=== PATIENT | male | born 1980 | race Caucasian/White ===

== ENCOUNTER 2018-03-21 20:50 | Emergency (ER) | payer SELFPAY ==
[~2018-03-21] VITALS: Ht 182.9 cm; Wt 81.6 kg
[~2018-03-21 20:50] MED LIST: HYDR1TAB8 OP
--- OUTSIDE RECORDS SUMMARY | 2018-03-21 20:54 | XMS REPORT ---
Author Author Sherri Moore Organization [employer] Address Unknown Phone Unavailable Care Team Providers Care Process Manufacturing Engineer Name Role Phone Sherri Moore CP Unavailable Allergies No Known Allergies Problems No Known Problems Medications No Known Medications Procedures Procedure Coding System Code Date NO SHOW FEE CPT-4 NOSHO Apr 22, 2014 Results No Known Results Summary Purpose [employer] Submission
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
--- OUTSIDE RECORDS SUMMARY | 2018-03-21 20:54 | XMS REPORT | Referral Summary ---
Author Author [facility] Organization [facility] Address Unknown Phone Unavailable Care Team Providers Care Screening Technician Name Role Phone Bobby Samano PCP Encounter [facility] Date(s): 02/09/16 - 02/09/16 [facility] [address] [place] [address] Discharge Diagnosis: Osteochondroma Discharge Disposition: 01-Home or Self Care Attending Physician: Grupo Avalos MD Admitting Physician: Grupo Avalos MD Vital Signs Most recent to 1 oldest [Reference Range]: Temperature Oral 36.5 degC [35.8-37.3 degC] (02/09/16 8:42 AM) Peripheral Pulse 73 bpm Rate [60-100 bpm] (02/09/16 9:59 AM) Respiratory Rate 20 br/min [14-20 br/min] (02/09/16 9:59 AM) Blood Pressure 132/91 mmHg [90-140/60-90 mmHg] (02/09/16 9:59 AM) SpO2 98 % (02/09/16 9:59 AM) Problem List No Known Problems Allergies, Adverse Reactions, Alerts No Known Medication Allergies Medications Naprosyn 375 mg oral tablet 375 mg 1 tabs, Oral, BID, X 4 days, # 8 tabs, 0 Refill(s), Indication: elisabet mcmahon md Start Date: 02/09/16 Stop Date: 02/13/16 Status: Ordered Ultram 50 mg oral tablet 50 mg 1 tabs, Oral, q4hr, X 4 days, # 24 tabs, 0 Refill(s), Indication: elisabet mcmahon md Start Date: 02/09/16 Stop Date: 02/13/16 Status: Ordered Results No data available for this section Immunizations No data available for this section Procedures No data available for this section Social History Social History Type Response Smoking Status Unknown if ever smoked Assessment and Plan No data available for this section
--- OUTSIDE RECORDS SUMMARY | 2018-03-21 20:54 | XMS REPORT | Continuity of Care Document ---
Author Author [facility] Marry [facility] Address Unknown Phone Unavailable Support Name Relationship Address Phone NELDA NOBLES M.D. Caregiver [employer] [address] [place] [address] STEPHANIA ABBOTT Next Of Kin [address] NO ONE ELSE [birth year]14 [place] [address] HOME Insurance Providers Payer Name Policy Number Subscriber Name Relationship [facility] [id number] [place] L 01 Self / Same As Patient Chief Complaint and Reason for Visit Chief Complaint Ankle Injury Reason for Visit [id number] Problems Active Problems Medical Problem Onset Date Status Clavicle fracture Unknown Acute Clavicle fracture Unknown Acute Closed fracture of olecranon process of ulna Unknown Acute Closed left ankle fracture Unknown Acute 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 Unknown Acute Elbow pain 08/13/2013 Acute Fracture of left clavicle Unknown Acute Fracture of left clavicle 12/06/2013 Acute Right 5th metacarpal (Boxer's) fracture Unknown Acute Right ankle sprain Unknown Acute Right knee sprain Unknown Acute Medications Current Home Medications Medication Dose Units Route Directions Days/Qty Instructions Start Date Hydrocodone-Acetaminophen 1 Tab 1-2 Tab Oral Q4-6H as needed for . 18 for pain 03/07/15 Past Home Medications Medication Directions Ordered Status Acetaminophen/Hydrocodone Bitart 1 Ea Tab, 1 Ea Oral Every 4 Hours As Needed 05/18/11 Discontinued Oxycodone/Acetaminophen 1 Tab/1 Un Tab, 1-2 Ea Oral Three Times A Day as needed for Pain 07/21/13 Discontinued Oxycodone/Acetaminophen 1 Tab/1 Un Tab, 1-2 Ea Oral Three Times A Day as needed for Pain 08/02/13 Discontinued Social History Social History Problem Response Recorded Date/Time Hx Alcohol Use Y social 07/26/2013 10:22am Smoking Status Heavy Tobacco Smoker 03/07/2015 4:45pm Query Response Start Date Stop Date Smoking Status Heavy Tobacco Smoker Hospital Discharge Instructions No hospital discharge instructions. Plan of Care Discharge Date 03/07/15 5:53pm Disposition 01 HOME, SELF-CARE Condition at Discharge Stable Instructions/Education Provided Ankle Fracture (ED) Forms Provided Work Release Prescriptions See Medication Section Referrals GABBY PHELAN M.D. - PABLO SHERIFF MD - Functional Status No functional status results. Allergies, Adverse Reactions, Alerts No known allergies. Immunizations No immunization records. Vital Signs Acute Vital Signs Vital Response Date/Time Blood Pressure 132/95 mm Hg 03/07/2015 5:33pm Blood Pressure Mean 107 mm Hg 03/07/2015 5:33pm Temperature (Fahrenheit) 97.8 degrees F (96.0 - 99.9) 03/07/2015 4:42pm Temperature (Calculated Celsius) 36.09093 degrees C 03/07/2015 4:42pm Temperature Source Oral 03/07/2015 4:42pm Pulse Pulse Rate: ED 85 bpm 03/07/2015 5:33pm Respiratory Rate 16 breaths per minute (10 - 20) 11/12/2014 11:58am Height (Feet) 5 ft 03/07/2015 4:42pm Height (Inches) 11 in. 03/07/2015 4:42pm Weight (Pounds) 175 lbs 03/07/2015 4:42pm Height 5 ft 11 in Weight 175 lb Body Mass Index 24.4 kg/m^2 Ambulatory Vital Signs Vital Response Date/Time Height 5 ft 11.260 in 12/10/2013 10:39am Weight 169 lbs 12/10/2013 10:39am Temperature 96.4 degrees F 12/10/2013 10:39am Blood Pressure 127/82 mm Hg 12/10/2013 10:39am Pulse Rate 89 bpm 12/10/2013 10:39am Body Surface Area 1.97 m2 12/10/2013 10:39am Body Mass Index 23.4 kg/m2 12/10/2013 10:39am Pulse Oximetry Pulse Oximetry 12/10/2013 10:39am Results No known relevant diagnostic tests, laboratory data and/or discharge summary. Procedures No known history of procedures. Encounters Encounter Location Arrival/Admit Date Discharge/Depart Date Attending Provider Departed Emergency Room [facility]ry [facility] 03/07/15 4:35pm 5:53pm NELDA NOBLES M.D. Departed Emergency Room Marry Chris [facility] 11/12/14 9:56am 11:59am KRISSY KANG DO Recent Diagnosis
--- OUTSIDE RECORDS SUMMARY | 2018-03-21 20:55 | XMS REPORT | Continuity of Care Document ---
Author Author Marry Chris [facility] Marry Chris [facility] Address Unknown Phone Unavailable Support Name Relationship Address Phone TIN BOLANOS M.D. Caregiver [address], [place] [address] Unavailable STEPHANIA ABBOTT Next [place] [address] [place] [address] Insurance Providers Guarantor Maurice Whitten Address [address] [place] [phone] Payer Self Pay Insurance Subscriber's Name Maurice Whitten Relationship 01 Self / Same As Patient Effective Date 17 Advance Directives No advance directive information available. Chief Complaint and Reason for Visit Chief Complaint Dental Pain Reason for Visit Elevated blood pressure reading without diagnosis of hypertension Gingivitis due to dental plaque with local contributing factor Problems Medical Problem Onset Date Status Clavicle fracture Unknown Acute Clavicle fracture Unknown Acute Closed fracture of olecranon process of ulna Unknown Acute Closed left ankle fracture Unknown Acute 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 Unknown Acute Elbow pain 08/13/2013 Acute Elevated blood pressure reading without diagnosis of hypertension Unknown Acute Fracture of left clavicle Unknown Acute Fracture of left clavicle 12/06/2013 Acute Gingivitis due to dental plaque with local contributing factor Unknown Acute Left ankle sprain Unknown Acute Right 5th metacarpal (Boxer's) fracture Unknown Acute Right ankle sprain Unknown Acute Right knee sprain Unknown Acute Past Problems Medical Problem Onset Date Status Elevated blood pressure reading Unknown Acute Intermittent right upper quadrant abdominal pain Unknown Acute Rib fracture Unknown Acute Right elbow pain Unknown Acute Right rib fracture Unknown Acute Medications Current Home Medications Medication Dose Units Route Directions Days Qty Instructions Start Date Penicillin V Potassium 500 Mg Tab 500 Mg Oral Four Times Daily for Infection 10 Days 40 Tablet 11/06/17 Past Home Medications Medication Directions Ordered Status Acetaminophen/Hydrocodone Bitart ([place] 5/325) 1 Ea Tab, 1 Ea Oral Every 4 Hours As Needed 05/18/11 Discontinued Oxycodone/Acetaminophen (Percocet) 1 Tab/1 Un Tab, 1-2 Ea Oral Three Times A Day as needed for Pain 08/02/13 Discontinued Oxycodone/Acetaminophen (Percocet) 1 Tab/1 Un Tab, 1-2 Ea Oral Three Times A Day as needed for Pain 07/21/13 Discontinued Social History Social History Problem Response Recorded Date/Time Onset Date Status Hx Alcohol Use Y - social 07/26/2013 10:22am Not Applicable Not Applicable Smoking Status Heavy Tobacco Smoker 11/06/2017 7:17pm Not Applicable Not Applicable Smoking Status Start Date Stop Date Heavy Tobacco Smoker Hospital Discharge Instructions No hospital discharge instruction information available. Plan of Care Discharge Date 11/06/17 7:41pm Disposition 01 HOME, SELF-CARE Condition at Discharge Stable Instructions/Education Provided Gingivitis (ED) Prescriptions See Medication Section Referrals CANDACE HARRISON M.D. Address: [address] [place] [phone] Additional Instructions/Education Rest. Alternate ibuprofen with Tylenol as needed. Pen-Vee K 500 mg 1 tablet orally 4 times a day x10 days. Follow up with dentist. Call to schedule appointment. Patient was given a dental sheet. Stop smoking. Followup with primary care physician as needed. Followup with primary care physician in the next 2-4 weeks to have blood pressure rechecked and reevaluated. Functional Status No functional status information available. Allergies, Adverse Reactions, Alerts No known allergies. Immunizations No immunization information available. Vital Signs Acute Vital Signs Vital Response Date/Time Blood Pressure 141/81 mm Hg 11/06/2017 7:14pm Blood Pressure Mean 101 mm Hg 11/06/2017 7:14pm Temperature (Fahrenheit) 98.5 degrees F (96.0 - 99.9) 11/06/2017 7:14pm Temperature (Calculated Celsius) 36.03274 degrees C 11/06/2017 7:14pm Temperature Source Oral 11/06/2017 7:14pm Pulse Pulse Rate: ED 74 bpm 11/06/2017 7:14pm Respiratory Rate 16 breaths per minute (10 - 20) 11/06/2017 7:14pm Height (Feet) 6 ft 11/06/2017 7:14pm Height (Inches) 0 in. 11/06/2017 7:14pm Weight (Pounds) 182.0 lbs 11/06/2017 7:14pm Height 6 ft 0 in 11/06/2017 7:14pm Weight 182 lb 11/06/2017 7:14pm Body Mass Index 24.7 kg/m^2 11/06/2017 7:14pm Ambulatory Vital Signs Vital Response Date/Time Height 6 ft 03/11/2015 10:23am Weight 175 lbs 03/11/2015 10:23am Body Surface Area 2.01 m2 03/11/2015 10:23am Body Mass Index 23.7 kg/m2 03/11/2015 10:23am Pulse Oximetry Pulse Oximetry 03/11/2015 10:23am Results Laboratory Results Test Name Result Units Flags Reference Collection Date/Time Result Date/ Time Comments White Blood Count 7.4 K/uL 5.0-10.0 07/27/2017 1:42pm 07/27/2017 1: 53pm Red Blood Count 4.88 M/uL 4.60-5.40 07/27/2017 1:42pm 07/27/2017 1: 53pm Hemoglobin 15.6 g/dL 14.0-18.0 07/27/2017 1:42pm 07/27/2017 1:53pm Hematocrit 45.0 % 40.0-54.0 07/27/2017 1:42pm 07/27/2017 1:53pm Mean Corpuscular Volume 92.2 fL 80.0-94.0 07/27/2017 1:42pm 07/27/2017 1:53pm Mean Corpuscular Hemoglobin 32.0 pg 26.0-33.0 07/27/2017 1:42pm 2017 1:53pm Mean Corpuscular Hemoglobin Concent 34.7 g/dL 31.0-36.0 07/27/2017 1: 42pm 07/27/2017 1:53pm Red Cell Distribution Width 12.3 % 11.5-14.5 07/27/2017 1:42pm 2017 1:53pm RDW Standard Deviation 41.2 fL 35.1-43.9 07/27/2017 1:42pm 07/27/2017 1 :53pm Platelet Count 182 K/uL 130-400 07/27/2017 1:42pm 07/27/2017 1:53pm Mean Platelet Volume 10.7 fL 7.0-11.0 07/27/2017 1:42pm 07/27/2017 1: 53pm Neutrophils (%) (Auto) 67.9 % 42.0-75.0 07/27/2017 1:42pm 07/27/2017 1: 53pm Lymphocytes (%) (Auto) 22.7 % 16.0-44.0 07/27/2017 1:42pm 07/27/2017 1: 53pm Monocytes (%) (Auto) 5.4 % 2.0-9.0 07/27/2017 1:42pm 07/27/2017 1:53pm Eosinophils (%) (Auto) 3.4 % 0-7.0 07/27/2017 1:42pm 07/27/2017 1:53pm Basophils (%) (Auto) 0.5 % 0-1 07/27/2017 1:42pm 07/27/2017 1:53pm Immature Granulocyte % (Auto) 0.1 % 0-0.5 07/27/2017 1:42pm 07/27/2017 1:53pm Nucleated Red Blood Cells % 0.0 /100WBC 0-0 07/27/2017 1:42pm 2017 1:53pm Neutrophils # (Auto) 5.0 K/uL 1.9-8.0 07/27/2017 1:42pm 07/27/2017 1: 53pm Lymphocytes # (Auto) 1.7 K/uL 0.9-5.2 07/27/2017 1:42pm 07/27/2017 1: 53pm Monocytes # (Auto) 0.4 K/uL 0.16-1.0 07/27/2017 1:42pm 07/27/2017 1: 53pm Eosinophils # (Auto) 0.3 K/uL 0-0.8 07/27/2017 1:42pm 07/27/2017 1: 53pm Basophils # (Auto) 0.0 K/uL 0-0.2 07/27/2017 1:42pm 07/27/2017 1:53pm Immature Granulocyte # (Auto) 0.01 K/uL 0-0.40 07/27/2017 1:42pm 2017 1:53pm Nucleated Red Blood Cells # 0.00 K/uL 0.0-0.012 07/27/2017 1:42pm 07/27 1:53pm Random Glucose 97 mg/dL 65-115 07/27/2017 1:42pm 07/27/2017 2:06pm Blood Urea Nitrogen 13 mg/dL 8-25 07/27/2017 1:42pm 07/27/2017 2:06pm Creatinine 0.76 mg/dL L 0.9-1.6 07/27/2017 1:42pm 07/27/2017 2:06pm Glomerular Filtration Rate Calc 114.78 mL/min 07/27/2017 1:42pm 07/27 2:06pm MULTIPLY RESULT BY 1.210 IF THE PATIENT IS -BURKINAN Units are mL/min/1.73 m2 > 60 Normal kidney function 30-59 Moderately decreased kidney function 15-29 Severely decreased kidney function <15 End-stage kidney failure BUN/Creatinine Ratio 17.1 07/27/2017 1:42pm 07/27/2017 2:06pm Sodium Level 136 mEq/L 133-145 07/27/2017 1:42pm 07/27/2017 2:06pm Potassium Level 3.7 mEq/L 3.5-5.1 07/27/2017 1:42pm 07/27/2017 2:06pm Chloride Level 103 mEq/L 98-116 07/27/2017 1:42pm 07/27/2017 2:06pm Carbon Dioxide Level 25 mEq/L 22-34 07/27/2017 1:42pm 07/27/2017 2: 06pm Anion Gap 11.7 6-13 07/27/2017 1:42pm 07/27/2017 2:06pm Calcium Level 9.4 mg/dL 8.2-10.6 07/27/2017 1:42pm 07/27/2017 2:06pm Total Protein 7.7 gm/dL 6.0-8.4 07/27/2017 1:42pm 07/27/2017 2:06pm Albumin 4.6 gm/dL 3.2-5.0 07/27/2017 1:42pm 07/27/2017 2:06pm Globulin 3.1 gm/dL H 2.0-3.0 07/27/2017 1:42pm 07/27/2017 2:06pm Albumin/Globulin Ratio 1.5 1.4-2.4 07/27/2017 1:42pm 07/27/2017 2: 06pm Total Bilirubin 1.5 mg/dL H 0.1-1.3 07/27/2017 1:42pm 07/27/2017 2:06pm Alkaline Phosphatase 78 U/L 35-125 07/27/2017 1:42pm 07/27/2017 2:06pm Aspartate Amino Transf (AST/SGOT) 24 U/L 5-40 07/27/2017 1:42pm 2017 2:06pm Alanine Aminotransferase (ALT/SGPT) 24 U/L 5-40 07/27/2017 1:42pm 07/27 2:06pm Lipase 28 U/L 8-57 07/27/2017 1:42pm 07/27/2017 2:06pm Procedures Procedure Status Date Provider(s) THER/PROPH/DIAG INJ SC/IM Completed 03/07/15 NELDA NOBLES M.D. APPLICATION LOWER LEG SPLINT Completed 03/07/15 NELDA NOBLES M.D. THER/PROPH/DIAG INJ SC/IM Completed 11/24/16 CASSIUS MELVIN D.O. THER/PROPH/DIAG INJ SC/IM Completed 07/27/17 ZA MOON M.D. THER/PROPH/DIAG INJ SC/IM Completed 07/27/17 ZA MOON M.D. Encounters Encounter Location Arrival/Admit Date Discharge/Depart Date Attending Provider Departed Emergency Room [facility] 11/06/17 7:13pm 7:41pm TIN BOLANOS M.D. Departed Emergency Room [facility] 07/27/17 12:55pm 2:35pm ZA MOON M.D. Office Visit [facility] 01/17/17 3:00pm BRIA DOE Registered Practice [facility] 01/17/17 2:50pm BRIA DOE Departed Emergency Room [facility] 11/30/16 11:22am 11:58am ZA MOON M.D. Departed Emergency Room [facility] 11/24/16 9:36am 10:40am CASSIUS MELVIN D.O. Registered Referred [facility]ry [facility] 03/11/15 11:01am GABBY PHELAN M.D. Registered Practice [facility] 03/11/15 9:30am Lorie WADE PA-C Office Visit [facility] 03/11/15 9:30am Lorie WADE PA-C Registered Referred Marry Chris [facility] 03/07/15 5:55pm NELDA NOBLES M.D. Departed Emergency Room [facility] 03/07/15 4:35pm 5:53pm NELDA NOBLES M.D. Recent Diagnosis
--- OUTSIDE RECORDS SUMMARY | 2018-03-21 20:55 | XMS REPORT | Continuity of Care Document ---
Author Author Marry Chris [facility] Marry Chris [facility] Address Unknown Phone Unavailable Support Name Relationship Address Phone ZA MOON M.D. Caregiver [employer] [place] [id number] [facility] [address] [place] [address] Unavailable STEPHANIA ABBOTT Next [place] [address] [place] [address] Insurance Providers Guarantor Maurice Whitten Address [address] [place] [address] Payer Self Pay Insurance Subscriber's Name Maurice Whitten Relationship 01 Self / Same As Patient Effective Date 17 Advance Directives No advance directive information available. Chief Complaint and Reason for Visit Chief Complaint Abdominal Problem Reason for Visit Elevated blood pressure reading Intermittent right upper quadrant abdominal pain Right elbow pain Problems Medical Problem Onset Date Status Clavicle fracture Unknown Acute Clavicle fracture Unknown Acute Closed fracture of olecranon process of ulna Unknown Acute Closed left ankle fracture Unknown Acute 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 Unknown Acute Elbow pain 08/13/2013 Acute Fracture of left clavicle Unknown Acute Fracture of left clavicle 12/06/2013 Acute Left ankle sprain Unknown Acute Right 5th metacarpal (Boxer's) fracture Unknown Acute Right ankle sprain Unknown Acute Right knee sprain Unknown Acute Past Problems Medical Problem Onset Date Status Elevated blood pressure reading Unknown Acute Intermittent right upper quadrant abdominal pain Unknown Acute Rib fracture Unknown Acute Right elbow pain Unknown Acute Right rib fracture Unknown Acute Medications Current Home MedicationsNo current home medication information available. Past Home Medications Medication Directions Ordered Status Acetaminophen/Hydrocodone Bitart ([place] 5/325) 1 Ea Tab, 1 Ea Oral [...] Not Applicable Smoking Status Heavy Tobacco Smoker 07/27/2017 12:59pm Not Applicable Not Applicable Smoking Status Start Date Stop Date Heavy Tobacco Smoker Hospital Discharge Instructions No hospital discharge instruction information available. Plan of Care Discharge Date 07/27/17 2:35pm Disposition 01 HOME, SELF-CARE Condition at Discharge Stable Instructions/Education Provided Pre-Hypertension/Hypertension Abdominal Pain (ED) Musculoskeletal Pain (ED) Prescriptions See Medication Section Referrals LILIBETH FAJARDO D.O. Address: [address] [address] Additional Instructions/Education Take Tylenol or ibuprofen if needed for pain. Followup with primary care provider listed for reevaluation. Return to the ER if you have any worsening or concerning symptoms. Functional Status No functional status information available. Allergies, Adverse Reactions, Alerts No known allergies. Immunizations No immunization information available. Vital Signs Acute Vital Signs Vital Response Date/Time Blood Pressure 121/74 mm Hg 07/27/2017 2:23pm Blood Pressure Mean 90 mm Hg 07/27/2017 2:23pm Temperature (Fahrenheit) 97.8 degrees F (96.0 - 99.9) 07/27/2017 12:56pm Temperature (Calculated Celsius) 36.36946 degrees C 07/27/2017 12:56pm Temperature Source Oral 07/27/2017 12:56pm Pulse Pulse Rate: ED 82 bpm 07/27/2017 2:23pm Respiratory Rate 18 breaths per minute (10 - 20) 07/27/2017 2:23pm Height (Feet) 6 ft 07/27/2017 12:56pm Height (Inches) 11.0 in. 11/30/2016 11:23am Weight (Pounds) 180.0 lbs 07/27/2017 12:56pm Height 6 ft 0 in 07/27/2017 12:56pm Weight 180 lb 07/27/2017 12:56pm Body Mass Index 24.4 kg/m^2 07/27/2017 12:56pm Ambulatory Vital Signs Vital Response Date/Time Height [...] RESULT BY 1.210 IF THE PATIENT IS -GUATEMALAN Units are mL/min/1.73 m2 > 60 Normal [...] INJ SC/IM Completed 11/24/16 CASSIUS MELVIN D.O. Encounters Encounter Location Arrival/Admit Date Discharge/Depart Date Attending Provider Departed Emergency Room [facility] 07/27/17 12:55pm 2:35pm ZA MOON M.D. Office Visit [facility] 01/17/17 3:00pm BRIA DOE Registered Practice [facility] 01/17/17 2:50pm BRIA DOE Departed Emergency Room [facility] 11/30/16 11:22am 11:58am [facility] 11/24/16 9:36am 10:40am CASSIUS MELVIN D.O. Registered Referred [facility] 03/11/15 11:01am GABBY PHELAN M.D. Registered Practice [facility] 03/11/15 9:30am Lorie WADE PA-C Office Visit [facility] 03/11/15 9:30am Lorie WADE PA-C Registered Referred [facility]ry Chris [facility] 03/07/15 5:55pm NELDA NOBLES M.D. Departed Emergency Room [facility] 03/07/15 4:35pm 5:53pm NELDA NOBLES M.D. Departed Emergency Room [facility] 11/12/14 9:56am 11:59am KRISSY KANG DO Recent Diagnosis
--- OUTSIDE RECORDS SUMMARY | 2018-03-21 20:55 | XMS REPORT | Continuity of Care Document ---
Author Author Marry Chris [facility] Mrary Chris [facility] Address Unknown Phone Unavailable Support Name Relationship Address Phone CASSIUS MELVIN D.O. Caregiver [employer] [address] [place] [address] Unavailable STEPHANIA ABBOTT Next Of Kin [address] NO ONE ELSE 11/24/16 [place] [address] Insurance Providers Guarantor WhittenMaurice L Address [address] [place] [address] Payer Self Pay Insurance Subscriber's Name Maurice Whitten Dayana Relationship 01 Self / Same As Patient Advance Directives No advance directive information available. Chief Complaint and Reason for Visit Chief Complaint Rib Injury Reason for Visit Rib fracture Problems Medical Problem Onset Date Status Clavicle [...] Past Problems Medical Problem Onset Date Status Rib fracture Unknown Acute Medications Current Home Medications Medication Dose Units Route Directions Days Qty Instructions Start Date Hydrocodone-Acetaminophen ([place]) 5/325 Tab 1 Tab Oral Three Times A Day as needed for 14 Tablet 11/24/16 Past Home Medications Medication Directions Ordered Status Acetaminophen/Hydrocodone Bitart ([place] 5/325) 1 Ea Tab, 1 Ea Oral [...] Not Applicable Smoking Status Heavy Tobacco Smoker 11/24/2016 9:44am Not Applicable Not Applicable Smoking Status Start Date Stop Date Heavy Tobacco Smoker Hospital Discharge Instructions No hospital discharge instruction information available. Plan of Care Discharge Date 11/24/16 10:40am Disposition 01 HOME, SELF-CARE Condition at Discharge Stable Instructions/Education Provided Rib Fracture (ED) Prescriptions See Medication Section Additional Instructions/Education Patient is instructed to take very deep breaths, at least 10 an hour. Apply warm moist heat as much as possible. Patient states pain medications as prescribed. Follow up with PCP in 10-14 days. Tylenol and Advil for pain regimen. Functional Status No functional status information available. Allergies, Adverse Reactions, Alerts No known allergies. Immunizations No immunization information available. Vital Signs Acute Vital Signs Vital Response Date/Time Blood Pressure 125/80 mm Hg 11/24/2016 10:40am Blood Pressure Mean 95 mm Hg 11/24/2016 10:40am Temperature (Fahrenheit) 98.5 degrees F (96.0 - 99.9) 11/24/2016 9:37am Temperature (Calculated Celsius) 36.09172 degrees C 11/24/2016 9:37am Temperature Source Oral 11/24/2016 9:37am Pulse Pulse Rate: ED 75 bpm 11/24/2016 10:40am Respiratory Rate 16 breaths per minute (10 - 20) 11/24/2016 10:40am Height (Feet) 5 ft 11/24/2016 9:37am Height (Inches) 11.0 in. 11/24/2016 9:37am Weight (Pounds) 175.0 lbs 11/24/2016 9:37am Height 5 ft 11 in 11/24/2016 9:37am Weight 175 lb 11/24/2016 9:37am Body Mass Index 24.4 kg/m^2 11/24/2016 9:37am Ambulatory Vital Signs Vital Response Date/Time Height 6 ft 03/11/2015 10:23am Weight 175 lbs 03/11/2015 10:23am Body Surface Area 2.01 m2 03/11/2015 10:23am Body Mass Index 23.7 kg/m2 03/11/2015 10:23am Pulse Oximetry Pulse Oximetry 03/11/2015 10:23am Results No relevant diagnostic test, laboratory data and/or discharge summary information available. Procedures Procedure Status Date Provider(s) THER/PROPH/DIAG INJ SC/IM Completed 03/07/15 NELDA NOBLES M.D. APPLICATION LOWER LEG SPLINT Completed 03/07/15 NELDA NOBLES M.D. Encounters Encounter Location Arrival/Admit Date Discharge/Depart Date Attending Provider Departed Emergency Room [facility] 11/24/16 9:36am 10:40am CASSIUS MELVIN D.O. Registered Referred [facility] 03/11/15 11:01am GABBY PHELAN M.D. Registered Practice [facility] 03/11/15 9:30am Lorie WADE PA-C Registered Referred [facility] 03/07/15 5:55pm NELDA NOBLES M.D. Departed Emergency Room [facility] 03/07/15 4:35pm 5:53pm NELDA NOBLES M.D. Departed Emergency Room [facility] 11/12/14 9:56am 11:59am KRISSY KANG DO Recent Diagnosis
--- OUTSIDE RECORDS SUMMARY | 2018-03-21 20:55 | XMS REPORT | Continuity of Care Document ---
Author Author Marry [facility] Marry Chris [facility] Address Unknown Phone Unavailable Support Name Relationship Address Phone HELGA DASH M.D. Caregiver [address] [place] [address] [address] [place] [id number] GINOJELENASTEPHANIA Next Of Kin [address] [address] Insurance Providers Guarantor WhittenMaurice L Address [address] [place] [id number] Payer Self Pay Insurance Subscriber's Name Maurice Whitten Relationship 01 Self / Same As Patient Advance Directives No advance directive information available. Chief Complaint and Reason for Visit Chief Complaint Knee Pain Reason for Visit Right knee sprain Problems Medical Problem Onset Date Status Clavicle [...] Status Elevated blood pressure reading Unknown Acute Elevated blood pressure reading without diagnosis of hypertension Unknown Acute Gingivitis due to dental plaque with local contributing factor Unknown Acute Intermittent right upper quadrant abdominal pain Unknown Acute Rib fracture Unknown Acute Right elbow pain Unknown Acute Right rib fracture Unknown Acute Medications Current Home Medications Medication Dose Units Route Directions Days Qty Instructions Start Date Hydrocodone-Acetaminophen ([place]) 5/325 Tab 1-2 Tab Oral Q4-6H as needed for Pain 10 Tablet 12/19/17 Penicillin V Potassium 500 Mg Tab 500 Mg Oral Four Times Daily for Infection 10 Days 40 Tablet 11/06/17 Past Home Medications Medication Directions Ordered Status Acetaminophen/Hydrocodone Bitart ([place] 5/325) 1 Ea Tab, 1 Ea Oral [...] Not Applicable Smoking Status Heavy Tobacco Smoker 12/19/2017 3:12pm Not Applicable Not Applicable Smoking Status Start Date Stop Date Heavy Tobacco Smoker Hospital Discharge Instructions No hospital discharge instruction information available. Plan of Care Discharge Date 12/19/17 3:50pm Disposition 01 HOME, SELF-CARE Condition at Discharge Stable Instructions/Education Provided Knee Sprain (ED) Prescriptions See Medication Section Functional Status No functional status information available. Allergies, Adverse Reactions, Alerts No known allergies. Immunizations No immunization information available. Vital Signs Acute Vital Signs Vital Response Date/Time Blood Pressure 142/88 mm Hg 12/19/2017 3:09pm Blood Pressure Mean 106 mm Hg 12/19/2017 3:09pm Temperature (Fahrenheit) 98.3 degrees F (96.0 - 99.9) 12/19/2017 3:09pm Temperature (Calculated Celsius) 36.00233 degrees C 12/19/2017 3:09pm Temperature Source Oral 12/19/2017 3:09pm Pulse Pulse Rate: ED 83 bpm 12/19/2017 3:09pm Respiratory Rate 16 breaths per minute (10 - 20) 12/19/2017 3:09pm Height (Feet) 5 ft 12/19/2017 3:09pm Height (Inches) 11.0 in. 12/19/2017 3:09pm Weight (Pounds) 180.0 lbs 12/19/2017 3:09pm Height 5 ft 11 in 12/19/2017 3:09pm Weight 180 lb 12/19/2017 3:09pm Body Mass Index 25.1 kg/m^2 12/19/2017 3:09pm Ambulatory Vital Signs Vital Response Date/Time Height [...] RESULT BY 1.210 IF THE PATIENT IS -GRENADI[place] Units are mL/min/1.73 m2 > 60 Normal [...] Status Date Provider(s) THER/PROPH/DIAG INJ SC/IM Completed 11/24/16 CASSIUS MELVIN D.O. THER/PROPH/DIAG INJ SC/IM Completed 07/27/17 ZA MOON M.D. THER/PROPH/DIAG INJ SC/IM Completed 07/27/17 ZA MOON M.D. Encounters Encounter Location Arrival/Admit Date Discharge/Depart Date Attending Provider Departed Emergency Room [facility] 12/19/17 3:08pm 3:50pm HELGA DASH M.D. Departed Emergency Room [facility] 11/06/17 7:13pm 7:41pm TIN BOLANOS M.D. Departed Emergency Room [facility] 07/27/17 12:55pm 2:35pm ZA MOON M.D. Office Visit [facility] 01/17/17 3:00pm BRIA DOE Registered Practice [facility] 01/17/17 2:50pm BRIA DOE Departed Emergency Room [facility] 11/30/16 11:22am 11:58am ZA MOON M.D. Departed Emergency Room [facility] 11/24/16 9:36am 10:40am CASSIUS MELVIN D.O. Recent Diagnosis
--- OUTSIDE RECORDS SUMMARY | 2018-03-21 20:56 | XMS REPORT | Continuity of Care Document ---
Author Author [facility]ry Chris [facility] Marry Chris [facility] Address Unknown Phone Unavailable Support Name Relationship Address Phone KENZIE CHAIDEZ M.D. [facility]iver [facility] [address] [place] [address] STEPHANIA ABBOTT Next Of Kin [facility] NO ONE ELSE 12/19/13 [place] [address] HOME Insurance Providers Payer Name Policy Number Subscriber Name Relationship Self Pay Insurance Lorne Whittensamantha Anne 01 Self / Same As Patient Chief Complaint and Reason for Visit Chief Complaint Shoulder Pain Reason for Visit [id number] Problems Medical Problems Problem Onset Date Status Right 5th metacarpal (Boxer's) fracture Unknown Active Closed fracture of olecranon process of ulna Unknown Active Elbow pain 08/13/2013 Active 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 Unknown Active Fracture of left clavicle Unknown Active Fracture of left clavicle 12/06/2013 Active Clavicle fracture Unknown Active Medications Medication Dose Route Sig Days/Qty Instructions Order Date Discontinued Date Status Acetaminophen/Hydrocodone Bitart 1 Ea PO Every 4 hours as needed 14 Qty 05/18/11 07/03/11 Discontinued Oxycodone/Acetaminophen 1-2 Ea PO THREE TIMES A DAY 30 Qty for pain 07/2108/02/13 Discontinued Oxycodone/Acetaminophen 1-2 Ea PO THREE TIMES A DAY 30 Qty 08/02/13 Discontinued Hydrocodone-Acetaminophen 1 Tab PO Every 6 hours as needed 50 Qty 12/10 Active Social History Social History Problem Response Recorded Date/Time Hx Alcohol Use Y social 07/26/2013 10:22am Smoking Status Current every day smoker 12/19/2013 11:48am Query Response Start Date Stop Date Smoking Status Current every day smoker Hospital Discharge Instructions No hospital discharge instructions. Plan of Care Discharge Date 10/09/14 1:33pm Disposition 01 HOME, SELF-CARE Condition at Discharge Improved/Stable Instructions/Education Provided Clavicle Fracture (ED) Prescriptions See Medications Section Follow-up Orders Elbow Complete Lt PT Eval/Treat Elbow Complete Lt Referrals PABLO SHERIFF MD Functional Status No functional status results. Allergies, Adverse Reactions, Alerts Allergen Type Severity Reaction Status Last Updated No Known Allergies Active 12/06/13 Immunizations No immunization records. Vital Signs Acute Vital Signs Vital Response Date/Time Blood Pressure 136/79 mm Hg Blood Pressure Mean 91 mm Hg Blood Pressure Mean 98 mm Hg Temperature (Fahrenheit) 98.1 degrees F (96.0 - 99.9) Temperature (Calculated Celsius) 36.20046 degrees C Temperature (Calculated Celsius) 36.47440 degrees C (36.4 - 37.5) Temperature (Fahrenheit) 98.4 degrees F (96.0 - 99.9) Temperature Source Oral Temperature Source Oral Temp 98.4 degrees F (96.0 - 99.9) Temperature (Calculated Celsius) 36.31322 degrees C Pulse Pulse Rate (adult) 82 bpm (60 - 100) Pulse Rate (adult) 81 bpm (60 - 100) Pulse Rate: ED 92 bpm Respiratory Rate 18 breaths per minute (10 - 20) Respiratory Rate 15 bpm (10 - 20) Height (Feet) 5 ft Height (Inches) 11 in. Weight (Pounds) 175 lbs Ambulatory Vital Signs Vital Response Date/Time Height 5 ft 11.260 in 12/10/2013 10:39am Weight 169 lbs 12/10/2013 10:39am Temperature 96.4 degrees F 12/10/2013 10:39am Blood Pressure 127/82 mm Hg 12/10/2013 10:39am Pulse Rate 89 bpm 12/10/2013 10:39am Body Surface Area 1.97 m2 12/10/2013 10:39am Body Mass Index 23.4 kg/m2 12/10/2013 10:39am Results Test Source Date Result Interp. Ref. Range Comments Alanine Aminotransferase (ALT/SGPT) July 26, 2013 11:04am 24 U/L N 5-40 Albumin July 26, 2013 11:04am 4.2 gm/dL N 3.2-5.0 Albumin/Globulin Ratio July 26, 2013 11:04am 1.4 N 1.4-2.4 Alkaline Phosphatase July 26, 2013 11:04am 72 U/L N 35-125 Anion Gap July 26, 2013 11:04am 13.9 H 6-13 Aspartate Amino Transf (AST/SGOT) July 26, 2013 11:04am 19 U/L N 5-40 BUN/Creatinine Ratio July 26, 2013 11:04am 13.6 Basophils # (Auto) July 18, 2013 7:37pm 0.0 K/uL N 0-0.2 Basophils (%) (Auto) July 18, 2013 7:37pm 0.4 % N 0-1 Bedside Glucose August 14, 2013 10:51am 84 mg/dL N 70-120 Blood Urea Nitrogen July 26, 2013 11:04am 9 mg/dL N 8-25 Calcium Level July 26, 2013 11:04am 9.3 mg/dL N 8.2-10.6 Carbon Dioxide Level July 26, 2013 11:04am 28 mEq/L N 22-34 Chloride Level July 26, 2013 11:04am 101 mEq/L N 98-116 Creatinine July 26, 2013 11:04am 0.66 mg/dL L 0.9-1.6 Eosinophils # (Auto) July 18, 2013 7:37pm 0.1 K/uL N 0-0.8 Eosinophils (%) (Auto) July 18, 2013 7:37pm 1.9 % N 0-7.0 Globulin July 26, 2013 11:04am 3.1 gm/dL H 2.0-3.0 Hematocrit July 18, 2013 7:37pm 45.9 % N 40.0-54.0 Hemoglobin July 18, 2013 7:37pm 16.0 g/dL N 14.0-18.0 Lipase July 18, 2013 7:37pm 19 U/L N 8-57 Lymphocytes # (Auto) July 18, 2013 7:37pm 1.3 K/uL N 0.9-5.2 Lymphocytes (%) (Auto) July 18, 2013 7:37pm 29.0 % N 16.0-44.0 Mean Corpuscular Hemoglobin July 18, 2013 7:37pm 31.8 pg N 26.0-33.0 Mean Corpuscular Hemoglobin Concent July 18, 2013 7:37pm 34.9 g/dL N 31.0 -36.0 Mean Corpuscular Volume July 18, 2013 7:37pm 91.3 fL N 80.0-94.0 Mean Platelet Volume July 18, 2013 7:37pm 11.9 fL H 7.0-11.0 Monocytes # (Auto) July 18, 2013 7:37pm 0.5 K/uL N 0.16-1.0 Monocytes (%) (Auto) July 18, 2013 7:37pm 11.5 % H 2.0-9.0 Neutrophils # (Auto) July 18, 2013 7:37pm 2.6 K/uL N 1.9-8.0 Neutrophils (%) (Auto) July 18, 2013 7:37pm 57.0 % N 42.0-75.0 Nucleated Red Blood Cells # July 18, 2013 7:37pm 0.00 K/uL N 0.0-0.012 Nucleated Red Blood Cells % July 18, 2013 7:37pm 0.0 /100WBC N 0-0 Platelet Count July 18, 2013 7:37pm 155 K/uL N 130-400 Potassium Level July 26, 2013 11:04am 3.9 mEq/L N 3.5-5.1 RDW Standard Deviation July 18, 2013 7:37pm 40.8 fL N 35.1-43.9 Random Glucose July 26, 2013 11:04am 122 mg/dL H 65-115 Red Blood Count July 18, 2013 7:37pm 5.03 M/uL N 4.60-5.40 Red Cell Distribution Width July 18, 2013 7:37pm 12.5 % N 11.5-14.5 Sodium Level July 26, 2013 11:04am 139 mEq/L N 133-145 Total Bilirubin July 26, 2013 11:04am 0.2 mg/dL N 0.1-1.3 Total Protein July 26, 2013 11:04am 7.3 gm/dL N 6.0-8.4 Urine Amorphous Sediment April 08, 2010 12:00am None ROOM/ COMMENTS 02SOURCE: URINE, CLEAN CATCH Urine Appearance April 08, 2010 12:00am Clear ROOM/COMMENTS 02SOURCE: URINE, CLEAN CATCH Urine Bacteria April 08, 2010 12:00am Trace NEGATIVE ROOM/COMMENTS 02SOURCE: URINE, CLEAN CATCH Urine Bilirubin April 08, 2010 12:00am Negative NEGATIVE ROOM/ COMMENTS 02SOURCE: URINE, CLEAN CATCH Urine Casts April 08, 2010 12:00am None /lpf NONE ROOM/COMMENTS 02SOURCE: URINE, CLEAN CATCH Urine Color April 08, 2010 12:00am Yellow ROOM/COMMENTS 02SOURCE : URINE, CLEAN CATCH Urine Crystals April 08, 2010 12:00am None /hpf NONE ROOM/COMMENTS 02SOURCE: URINE, CLEAN CATCH Urine Epithelial Cells April 08, 2010 12:00am Rare /lpf ROOM/ COMMENTS 02SOURCE: URINE, CLEAN CATCH Urine Glucose (UA) April 08, 2010 12:00am Negative NEGATIVE ROOM/ COMMENTS 02SOURCE: URINE, CLEAN CATCH Urine Ketones April 08, 2010 12:00am 2+ NEGATIVE ROOM/COMMENTS 02SOURCE: URINE, CLEAN CATCH Urine Leukocyte Esterase April 08, 2010 12:00am Negative NEGATIVE ROOM/COMMENTS 02SOURCE: URINE, CLEAN CATCH Urine Mucus April 08, 2010 12:00am 1+ NEGATIVE ROOM/COMMENTS 02SOURCE: URINE, CLEAN CATCH Urine Nitrate April 08, 2010 12:00am Negative NEGATIVE ROOM/ COMMENTS 02SOURCE: URINE, CLEAN CATCH Urine Occult Blood April 08, 2010 12:00am Negative NEGATIVE ROOM/ COMMENTS 02SOURCE: URINE, CLEAN CATCH Urine Protein April 08, 2010 12:00am Negative NEGATIVE ROOM/ COMMENTS 02SOURCE: URINE, CLEAN CATCH Urine RBC April 08, 2010 12:00am None /hpf NONE ROOM/COMMENTS 02SOURCE: URINE, CLEAN CATCH Urine Specific Thelma April 08, 2010 12:00am 1.020 1.005-1.030 ROOM/COMMENTS 02SOURCE: URINE, CLEAN CATCH Urine Urobilinogen April 08, 2010 12:00am 0.2 E.U./dL 0.2-1.0 ROOM/ COMMENTS 02SOURCE: URINE, CLEAN CATCH Urine WBC April 08, 2010 12:00am 10-20 /hpf NONE THIS SPECIMEN MEETS MEDICAL STAFF CRITERIAFOR A URINE CULTURE. A CULTURE HAS BEEN SET. Urine WBC Clumps April 08, 2010 12:00am None NONE ROOM/COMMENTS 02SOURCE: URINE, CLEAN CATCH Urine pH April 08, 2010 12:00am 6.0 4.5-8.0 ROOM/COMMENTS 02SOURCE : URINE, CLEAN CATCH White Blood Count July 18, 2013 7:37pm 4.6 K/uL L 5.0-10.0 Lab Scanned Report August 15, 2013 1:24pm [facility] [id number] Bedside Troponin I January 27, 2008 11:21pm 0.00 ng/mL N 0.0-0.03 <0.03 ng/mL=NORMAL0.04 - 0.50 ng/mL=CARDIAC CONDITION >0.50 ng/mL=SUGGESTS AMI Glomerular Filtration Rate Calc July 26, 2013 11:04am > 60.00 mL/min MULTIPLY RESULT BY 1.210 IF THE PATIENT IS -AMERICANUnits are mL/min/ 1.73 m2 > 60 Normal kidney function 30-59 Moderately decreased kidney function 15-29 Severely decreased kidney function <15 End-stage kidney failure Immature Granulocyte # (Auto) July 18, 2013 7:37pm 0.01 K/uL N 0-0.40 Immature Granulocyte % (Auto) July 18, 2013 7:37pm 0.2 % N 0-0.5 Urine Culture Urine,Clean Catch April 08, 2010 12:00am NO GROWTH AFTER 2 DAYS Procedures Procedure Status Date Provider(s) THER/PROPH/DIAG INJ SC/IM completed 12/06/13 NELDA NOBLES M.D. APPLY FOREARM SPLINT completed 05/24/13 RAYO VAZQUEZ M.D. Application of splint (procedure) completed 05/24/13 RAYO VAZQUEZ M.D. THER/PROPH/DIAG INJ IV PUSH completed 07/18/13 RAYO VAZQUEZ M.D. TX/PRO/DX INJ NEW DRUG ADDON completed 07/18/13 RAYO VAZQUEZ M.D. TX/PRO/DX INJ SAME DRUG MINING AND QUARRYING MACHINERY REPAIRER completed 07/18/13 RAYO VAZQUEZ M.D. HYDRATE IV INFUSION ADD-ON completed 07/18/13 RAYO VAZQUEZ M.D. HYDRATE IV INFUSION ADD-ON completed 07/18/13 RAYO VAZQUEZ M.D. APPLY LONG ARM SPLINT completed 07/21/13 VELMA MONTGOMERY M.D. THER/PROPH/DIAG INJ SC/IM completed 07/21/13 VELMA MONTGOMERY M.D. Application of splint (procedure) completed 07/21/13 VELMA MONTGOMERY M.D. TREAT ULNAR FRACTURE completed 07/29/13 PABLO SHERIFF MD Open reduction of fracture of radius with internal fixation (procedure) completed 07/29/13 PABLO SHERIFF MD TREAT ULNAR FRACTURE completed 08/14/13 PABLO SHERIFF MD Open reduction of fracture of radius with internal fixation (procedure) completed 08/14/13 PABLO SHERIFF MD THER/PROPH/DIAG INJ SC/IM completed 08/15/13 VELMA MONTGOMERY M.D. THER/PROPH/DIAG INJ SC/IM completed 08/15/13 VELMA MONTGOMERY M.D. THER/PROPH/DIAG INJ SC/IM completed 08/15/13 VELMA MONTGOMERY M.D. Encounters Encounter Location Date/Time Departed Emergency Room [facility] 12/19/13 11:45am Office Visit [facility] 12/10/13 9:40am Departed Emergency Room [facility] 12/06/13 8:56am Office Visit [facility] 08/22/13 11:00am Departed Emergency Room [facility] 08/15/13 5:50pm Office Visit [facility] 08/13/13 9:30am Office Visit [facility] 08/02/13 11:00am Office Visit [facility] 07/26/13 9:30am Departed Emergency Room [facility] 07/21/13 6:28am Departed Emergency Room [facility] 07/18/13 7:25pm Departed Emergency Room [facility] 05/24/13 7:34pm Recent Diagnosis
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
--- OUTSIDE RECORDS SUMMARY | 2018-03-21 20:56 | XMS REPORT | Continuity of Care Document ---
Author Author [facility] Address Unknown Phone Unavailable Support Name Relationship Address Phone ZA MOON M.D. Caregiver [facility] [address] [place] [address] Unavailable STEPHANIA ABBOTT Next Of Kin [address] NO ONE ELSE 11/24/16 [place] [address] Insurance Providers Guarantor Mel Whittenjenna Anne Address [address] [place] [id number] Payer Self Pay Insurance Subscriber's Name Lakia Whitten Dayana Relationship 01 Self / Same As Patient Advance Directives No advance directive information available. Chief Complaint and Reason for Visit Chief Complaint Rib Pain Reason for Visit [id number] Problems Medical Problem Onset Date Status Clavicle [...] Unknown Acute Right knee sprain Unknown Acute Right rib fracture Unknown Acute Past Problems Medical Problem Onset Date Status Rib fracture Unknown Acute Medications Current Home Medications Medication Dose Units Route Directions Days Qty Instructions Start Date Hydrocodone-Acetaminophen (Steptoe) 7.5/325 Tab 1 Tab Oral Every 8 Hours As Needed as needed for Pain 10 Tablet 11/30/16 Past Home Medications Medication Directions Ordered Status Acetaminophen/Hydrocodone Bitart (Steptoe 5/325) 1 Ea Tab, 1 Ea Oral [...] Not Applicable Smoking Status Heavy Tobacco Smoker 11/30/2016 11:25am Not Applicable Not Applicable Smoking Status Start Date Stop Date Heavy Tobacco Smoker Hospital Discharge Instructions No hospital discharge instruction information available. Plan of Care Discharge Date 11/30/16 11:58am Disposition 01 HOME, SELF-CARE Condition at Discharge Stable Instructions/Education Provided Rib Fracture (ED) Prescriptions See Medication Section Referrals RYANN DOMINGUEZ M.D. Address: [address] [place] [address] Additional Instructions/Education Take Steptoe for pain as prescribed. You can take ibuprofen for pain if needed as well. I recommend light duty at work for the next 2 weeks. Followup with primary care provider for reevaluation. Functional Status No functional status information available. Allergies, Adverse Reactions, Alerts No known allergies. Immunizations No immunization information available. Vital Signs Acute Vital Signs Vital Response Date/Time Blood Pressure 147/77 mm Hg 11/30/2016 11:23am Blood Pressure Mean 100 mm Hg 11/30/2016 11:23am Temperature (Fahrenheit) 98.0 degrees F (96.0 - 99.9) 11/30/2016 11:23am Temperature (Calculated Celsius) 36.24647 degrees C 11/30/2016 11:23am Temperature Source Oral 11/30/2016 11:23am Pulse Pulse Rate: ED 80 bpm 11/30/2016 11:23am Respiratory Rate 16 breaths per minute (10 - 20) 11/30/2016 11:23am Height (Feet) 5 ft 11/30/2016 11:23am Height (Inches) 11.0 in. 11/30/2016 11:23am Weight (Pounds) 175.0 lbs 11/30/2016 11:23am Height 5 ft 11 in 11/30/2016 11:23am Weight 175 lb 11/30/2016 11:23am Body Mass Index 24.4 kg/m^2 11/30/2016 11:23am Ambulatory Vital Signs Vital Response Date/Time Height [...] Discharge/Depart Date Attending Provider Departed Emergency Room [facility] 11/30/16 11:22am 11:58am ZA MOON M.D. Departed Emergency Room [facility] 11/24/16 9:36am 10:40am CASSIUS MELVIN D.O. Registered Referred [facility] 03/11/15 11:01am GABBY PHELAN M.D. Registered Practice [facility] 03/11/15 9:30am Lorie WADE PA-C Registered Referred [facility] 03/07/15 5:55pm NELDA NOBLES M.D. Departed Emergency Room [facility] 03/07/15 4:35pm 5:53pm NELDA NOBLES M.D. Departed Emergency Room [facility] 11/12/14 9:56am 11:59am KRISSY KANG DO Recent Diagnosis
--- OUTSIDE RECORDS SUMMARY | 2018-03-21 20:56 | XMS REPORT | Continuity of Care Document ---
Author Author [facility] Organization [facility] Address Unknown Phone Unavailable Care Team Providers Care Weed Science Research Technician Name Role Phone NO, LOCAL PHYSICIAN PP Unavailable Insurance Providers Payer Name Policy Number Subscriber Name Relationship Self Pay WhittenMaurice 01 Self / Same As Patient Advance Directives Directive Response Recorded Date Advance Directives N 10/21/12 12:21pm Problems No Known Problems or Medical conditions. Social History History Response Recorded Date/Time Alcohol Use Denies Use 10/21/12 12:21pm Recreational Drug Use N 10/21/12 12:21pm Allergies, Adverse Reactions, Alerts Allergen Type Severity Reaction Last Updated No Known Drug Allergies 10/21/12 Medications Medication Dose Units Route Sig Qty Days Hydrocodone Bitartrate/Ibuprofen (Vicoprofen 200-7.5 Mg Tab) 1 - 2 Each OP Q 4 - 6 HRS PRN 20 Response Recorded Date/Time Status not known Unknown Results No Known Relevant Diagnostic Tests, Laboratory Data and/or Discharge Summary. Encounters Encounter Location Date/Time Departed Emergency Room [facility] 01/23 12:14pm
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
[2018-03-21] MEDS ORDERED: TETANUS,DIPTH,PERTUSS P/F (BOOSTRIX) 0.5 ML VIAL IM STA (21:18)
[2018-03-21] MEDS ORDERED: RX-AMOX/CLAV. (AUGMENTIN) 500MG TAB PPK#2 PO STA (21:18)
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
[2018-03-21] MEDS ORDERED: TRAM50TA2 PO (21:30)
[2018-03-21] MEDS ORDERED: AMOX-358 PO (21:30)
--- NOTE | 2018-03-21 21:41 | Diagnostic Imaging Report ---
PATIENT HISTORY: Left medial hand pain. TECHNIQUE: Three views of the left hand. COMPARISON: None. FINDINGS: There is a mildly comminuted, mildly radially displaced and mildly volarly angulated fracture at the left fifth metacarpal neck. There is an oblique, mildly ulnarly and dorsally displaced fracture at the fourth metacarpal base. Extension to the articular surface is not definitively seen. There is soft tissue edema about the fracture sites. Alignment of the bony structures in the left hand are otherwise unremarkable. IMPRESSION: Fractures of the left fifth metacarpal neck and fourth metacarpal base. Dictated by: Dictated on workstation # [id number]
[2018-03-21 21:43] VITALS: BP 133/89
== END 2018-03-21 21:43 | disposition home or self-care (01) ==
LOC: EDUNIT# 20:50 → ER 20:51
DX: S62.357A Nondisplaced fracture of shaft of fifth metacarpal bone, left hand, initial encounter for closed fracture (principal); S62.345A Nondisplaced fracture of base of fourth metacarpal bone, left hand, initial encounter for closed fracture; F17.200 Nicotine dependence, unspecified, uncomplicated; Z23 Encounter for immunization; Y04.8XXA Assault by other bodily force, initial encounter
CPT/HCPCS: 29125; 73130; 90471; 90715